=== PATIENT | female | born 1935 | race Caucasian/White ===

== ENCOUNTER → 2018-05-19 | Day surgery (SDC) | payer MEDICARE, OTHER ==
[~2018-05-19] MED LIST: Benzocaine 20% Topical Spray UD MUCMEM ONE; Dextrose 5%-0.45% NaCl 1,000 ML IV SCH; Midazolam 1 MG/ML 2 ML SDV IV ONE; Midazolam 1 MG/ML 2 ML SDV ONE
--- NOTE | 2018-05-19 18:16 | OR ---
DATE: 05/19/2018 PREOPERATIVE DIAGNOSIS: History of liver cirrhosis. This is a variceal screen exam. ANESTHESIA: Conscious sedation with IV Versed. SPECIMEN: None. FINDINGS: No esophageal varices identified. She does have a small 1 to 2 cm hiatal hernia and ring around the esophagus at the EG junction, which is most likely a scar formation secondary to reflux. This is not a true Schatzki's ring or esophageal web, it is way too large to need any dilations. It should not cause any trouble. INDICATION FOR PROCEDURE: This 82-year-old female has a history of liver cirrhosis. They are wondering if she has esophageal varices in case they plan on surgeries. Her most upcoming one seems to be a hip replacement. PROCEDURE IN DETAIL: After adequate preparation, a gastroscope was inserted into the esophagus. This was passed down to the distal esophagus, shows a small hiatal hernia. No evidence of significant reflux esophagitis. However, but at the EG junction. She has a ring that is probably fibrous in nature and is large and does not need dilation. The scope was advanced into the stomach. Both forward and retroflexed views were normal. The scope was advanced through the pylorus, and the first and second parts of the duodenum was also normal. Air was suctioned from the stomach, and the scope removed. [facility] /[id number]
== END ==
LOC: DL.ENDO 08:59
PROVIDERS: ATTEND Surgery
DX: Z13.810 Encounter for screening for upper gastrointestinal disorder (principal); K44.9 Diaphragmatic hernia without obstruction or gangrene; Z87.19 Personal history of other diseases of the digestive system; Z79.899 Other long term (current) drug therapy
CPT/HCPCS: 43235; A9270; J7042; J2250